=== PATIENT | male | born 1980 | race Caucasian/White ===

== ENCOUNTER → 2017-05-31 | Outpatient (CLI) | payer OTHER, SELFPAY | PROVIDERS: Visit Provider Nurse Practitioner Family | DX: G89.11 Acute pain due to trauma (principal); M25.461 Effusion, right knee | CPT/HCPCS: 73721 ==

== ENCOUNTER 2017-07-18 08:30 | Outpatient (RCR) | payer OTHER, SELFPAY | END 2017-07-24 15:12 | disposition home or self-care (01) | LOC: PT 08:30 | PROVIDERS: Family Provider Internal Medicine Adolescent Medicine; Visit Provider Orthopaedic Surgery | DX: M25.461 Effusion, right knee | CPT/HCPCS: 97110 ==

== ENCOUNTER → 2018-01-11 10:20 | Outpatient (CLI) | payer OTHER, SELFPAY ==
[2018-01-11 13:52] LABS: Chol/HDL Ratio 5.9 (1-3.5); Cholesterol 189 mg/dL (140-200); HDL Cholesterol 32 mg/dL (27-67)
[2018-01-11 14:00] LABS: Triglycerides 917 mg/dL (30-200)
== END ==
PROVIDERS: Visit Provider Internal Medicine Adolescent Medicine
DX: E78.2 Mixed hyperlipidemia (principal)
CPT/HCPCS: 36415; 80061

== ENCOUNTER → 2018-07-02 08:15 | Outpatient (CLI) | payer OTHER, SELFPAY ==
--- NOTE | 2018-07-02 08:22 | MR_ITS ---
MR knee RT wo con HISTORY: Pain and swelling ITS.REASON: ACUTE PAIN DUE TO TRAUMA, PAIN IN RIGHT KNEE ORDERING PHYSICIAN: Jeffery Brumfield MD PATIENT AGE: 38 years Comparison: 05/31/2017 TECHNIQUE: Standard multiplanar multiecho sequences are performed without contrast. FINDINGS: The cruciate ligaments are intact. The medial collateral ligaments also appear intact as do the patellar and quadriceps tendon. No meniscal tear is evident. The patellar cartilage is preserved. There is mild lateral patellar subluxation. There is thinning of the medial patellofemoral ligament which may represent a chronic partial tear or sprain. The lateral patellofemoral ligament is intact. There is a small to medium size knee joint effusion. Previously noted edema in the popliteal region is improved. No fracture or dislocation. No bone bruise apparent. IMPRESSION: 1. No evidence of internal derangement 2. Small to medium-sized knee joint effusion once again noted not quite as large as compared to the previous exam. 3. Lateral patellar subluxation with thinning of the medial patellofemoral ligament suggesting a chronic partial tear.
== END ==
PROVIDERS: PCP Internal Medicine Adolescent Medicine; Visit Provider Internal Medicine Adolescent Medicine
DX: M25.561 Pain in right knee (principal); G89.11 Acute pain due to trauma
CPT/HCPCS: 73721

== ENCOUNTER 2019-06-03 08:00 | Outpatient (RCR) | payer OTHER, SELFPAY | END 2019-06-03 09:30 | disposition home or self-care (01) | LOC: PT.CARL 08:00 | PROVIDERS: Visit Provider Orthopaedic Surgery | DX: M25.561 Pain in right knee (principal); M65.9 Synovitis and tenosynovitis, unspecified | CPT/HCPCS: 97010; 97014; 97033; 97035; 97110; 97140; 97163; G0283 ==

== ENCOUNTER 2019-11-04 08:00 | Outpatient (RCR) | payer OTHER, SELFPAY ==
--- NOTE | 2019-09-29 10:28 | [facility].PTOPEV ---
PT Outpatient Evaluation Rehab PT Outpatient Evaluation Start: 09/29/19 09:25 Freq: Status: Active Protocol: Document 09/29/19 09:25 [email or web address] (Rec: 09/29/19 10:23 [email or web address] [id number]) Electronically Signed By Freeman Santos, PT 09/29/19 09:25 Outpatient Therapy Subjective History Subjective History Pt. is a 39 year old male who presents to outpatient PT clinic with reports of intermittent LBP! and stiffness of insidious onset 10 years ago per pt. report. Pt. reports I've been dealing with bulging discs and bad OA for years. Pt. reports diagnostic imaging positive for bulging discs and lumbar DDD. Pt. denies injections for current pathology. Pt. does report radicular P! in RLE superior to knee, but denies having symptoms for 2 months now. Current medications include Hydrocodone. PMH includes RLE knee plica reconstruction arthroscopic surgery, HTN, and Hyperlipidemia. Chief Complaint Pain,Stiff Symptom Type Ache,Numbness Symptoms Relieved By Rest/Positioning,Heat, Prescription Meds Symptoms Aggravated By Standing,Bending/Stooping, Walking,Lifting Prior Functional Limitations None Current Functional Limitations Lifting,Sleeping,Standing, Squatting,Bending/Stooping Symptom Description Intermittent Level of pain today (0-10) 1 Pain scale - at its best (0-10) 1 Pain scale - at its worst (0-10) 7 Lumbopelvic Eval Posture Thoracic Spine Posture Standing Position Neutral Lumbar Spine Posture Standing Position Decreased Lordosis Assistive device Assistive Devices None / NA Gait Observation General Gait Pattern Observation No Deviations/Normal Palapation tenderness right thoracic spinal tenderness No lumbar spinal tenderness No paraspinal tenderness Yes: L4-S1 paraspinals buttock tenderness No Lumbar/Sacral Palpation Findings Tenderness Lumbar/Sacral Palpation Overall Comment grade 3 +TTP to assessment above and R PSIS Accessory Movement L4 right L5 right Range of Motion L
== END 2019-11-04 10:55 | disposition home or self-care (01) ==
LOC: PT.CARL 08:00
PROVIDERS: PCP Internal Medicine Adolescent Medicine; Visit Provider Nurse Practitioner Family
DX: M51.36 Other intervertebral disc degeneration, lumbar region (principal)
CPT/HCPCS: 97010; 97012; 97014; 97035; 97110; 97140; 97163; G0283